=== PATIENT | female | born 1950 | race Caucasian/White ===

== ENCOUNTER 2021-06-19 21:52 | Emergency (ER) | payer MEDICARE, OTHER ==
[~2021-06-19] VITALS: Ht 157.5 cm; Wt 90.0 kg
[2021-06-19 22:17] LABS: FECAL OB PT POSITIVE (NEG)
--- NOTE | 2021-06-19 23:33 | PHYS DOC ---
General Adult EDM: Chief Complaint: GI PROBLEM HPI: HPI: Patient is a 71 year old female who presents with bleeding found in her diaper by [facility] staff. Unclear etiology of the bleeding as she does have hemorrhoids and a severe yeast infection around her rectum, groin, vulva that has caused bleeding. Reportedly bright red blood. She is otherwise been feeling well. No nausea/vomiting. No weakness, presyncope, chest pain, shortness of breath. No abdominal pain. Denies dysuria, urgency, frequency. No blood thinning medications. Review of Systems: Review of Systems: Constitutional: Denies fever or chills. [] Eyes: Denies change in visual acuity. [] HENT: Denies nasal congestion or sore throat. [] Respiratory: Denies cough or shortness of breath. [] Cardiovascular: Denies chest pain or edema. [] GI: Denies abdominal pain, nausea, vomiting, or diarrhea. Reports blood in diaper. [] : Denies dysuria. [] Musculoskeletal: Denies back pain or joint pain. [] Integument: Denies rash. [] Neurologic: Denies headache, focal weakness or sensory changes. [] Endocrine: Denies polyuria or polydipsia. [] Lymphatic: Denies swollen glands. [] Psychiatric: Denies depression or anxiety. [] Heart Score: C/O Chest Pain: No Risk Factors: Risk Factors: DM, Current or recent (<one month) smoker, HTN, HLP, family history of CAD, obesity. Risk Scores: Score 0 - 3: 2.5% MACE over next 6 weeks - Discharge Home Score 4 - 6: 20.3% MACE over next 6 weeks - Admit for Clinical Observation Score 7 - 10: 72.7% MACE over next 6 weeks - Early Invasive Strategies Allergies: Allergies: Allergies Coded Allergies Type Severity Reaction Last Updated Verified No Known Drug Allergies 06/19/21 No Physical Exam: PE: Constitutional: Obese, no apparent distress.] HENT: Normocephalic, atraumatic Neck: Normal range of motion, no tenderness, supple, no stridor. [] Cardiovascular:Heart rate regular rhythm, no murmur [] Lungs & Thorax: Bilateral breath sounds clear to auscultation [] Abdomen: Bowel sounds normal, soft, no tenderness, no masses, no pulsatile masses. [] Rectal/: Evidence of erythema consistent with yeast infection underlying pannus, advancing into the groin and in the gluteal cleft. Also advances through the labia. There is bleeding present on the vulva related to the yeast infection. Rectal exam with anal fissure at 6 o'clock position, with fresh appearing scab tissue, but no active bleeding. Large hemorrhoid at 9 o'clock position, nonthrombosed, not bleeding. No bright red blood or melena appreciated on rectal exam. Hemoccult was positive Skin: Warm, dry, no erythema, no rash, brisk cap refill. [] Back: No tenderness, no CVA tenderness. [] Extremities: No tenderness, no cyanosis, no clubbing, ROM intact, no edema. [] Neurologic: Alert and oriented X 3, normal motor function, normal sensory function, no focal deficits noted. [] Psychologic: Affect normal, judgement normal, mood normal. [] Current Patient Data: Labs: Laboratory Tests Test 06/19/21 22:10 Stool Occult Blood Positive (NEG) EKG: EKG: [] Radiology/Procedures: Radiology/Procedures: [] Course & Med Decision Making: Course & Med Decision Making Pertinent Labs and Imaging studies reviewed. (See chart for details) Patient is 71-year-old female who presents from a [facility] with concern of bright red blood in her diaper. Unclear source of bleeding, as she does have a hemorrhoid, anal fissure, and a yeast infection that is slowly bleeding currently. No bright red blood or melena return on rectal exam, however Hemoccult was positive. Could be contamination from above nearby structures. Fortunately, vital signs are stable and cap refill is brisk. We will check cell counts, and continue to monitor for ongoing bleeding. 2333 Hemoglobin 11.0. Last was 10.5 per our nursing facility. Creatinine slightly elevated 1.8, most recent 1.2. Vital signs of her bed stable throughout her stay. She has had no further evidence of bleeding. She has several external structures that would be nonconcerning sources for bright red blood. Given her overall well appearance, stable labs, no further evidence of bleeding feel that she can be discharged with close observation at her nursing facility. Return precautions for recurrent concerning bleeding. [id number] Alexis Disclaimer: Alexis Disclaimer: This electronic medical record was generated, in whole or in part, using a voice recognition dictation system. Departure Departure Impression: Primary Impression: Hemorrhoid Additional Impressions: Anal fissure Tinea cruris Disposition: HOME / SELF CARE / HOMELESS Condition: STABLE Referrals: LELIA MEJIA DO (PCP) Additional Instructions: Your labs and vital signs look good. There were 3 different sources that could have potentially contributed to the bleeding found in your brief. There was an anal fissure, hemorrhoid, and bleeding from a yeast infection on your vulva. If you develop heavy/concerning recurrent bleeding [facility]. Otherwise please follow-up with your outpatient doctors. JAYNE FAYE MD Jun 19, 2021 23:33
[2021-06-19 23:51] LABS: BASO % 0 % (0-3); EOS # 0.1 x10^3/uL (0.0-0.7); EOS % 1 % (0-3); HEMATOCRIT 33.9 % (36.0-47.0); LYMPH # 1.9 x10^3/uL (1.0-4.8); LYMPH % 17 % (24-48); MEAN CORPUSCULAR HEMOGLOBIN 27 pg (25-35); MEAN CORPUSCULAR HGB CONC 32 g/dL (31-37); MEAN CORPUSCULAR VOLUME 84 fL (79-100); MONO # 1.1 x10^3/uL (0.0-1.1); MONO % 10 % (0-9); NEUT % 72 % (31-73); PLATELET COUNT 308 x10^3/uL (140-400); RED BLOOD COUNT 4.03 x10^6/uL (3.50-5.40); RED CELL DISTRIBUTION WIDTH 16.4 % (11.5-14.5); WHITE BLOOD COUNT 11.1 x10^3/uL (4.0-11.0)
[2021-06-20 00:01] LABS: CALCIUM 9.2 mg/dL (8.5-10.1); CREATININE 1.8 mg/dL (0.6-1.0); GFR 27.8; POTASSIUM 4.6 mmol/L (3.5-5.1)
[2021-06-20 00:08] LABS: ALBUMIN 2.5 g/dL (3.4-5.0); ALBUMIN/GLOBULIN RATIO 0.6 (1.0-1.7); TOTAL BILIRUBIN 0.5 mg/dL (0.2-1.0); TOTAL PROTEIN 6.5 g/dL (6.4-8.2)
[2021-06-20] MEDS ORDERED: MICONAZOLE NITRATE 2% TOPICAL POWDER 85GM JAR. TP SCH (02:22)
[2021-06-20] MEDS ORDERED: MICONAZOLE NITRATE 2% TOPICAL CREAM 30GM TUBE. TP SCH (02:39)
[2021-06-20 03:00] VITALS: BP 133/61
== END 2021-06-20 07:43 | disposition home or self-care (01) ==
LOC: ER 21:52
DX: K64.9 Unspecified hemorrhoids (principal); K60.2 Anal fissure, unspecified; B35.6 Tinea cruris
CPT/HCPCS: 36415; 80053; 82274; 85025; 99285; P9612